=== PATIENT | male | born 1950 | race Two or more races ===

== ENCOUNTER 2020-04-09 16:30 | Emergency (ER) | payer MEDICARE, OTHER ==
[~2020-04-09] VITALS: Ht 167.6 cm; Wt 60.0 kg
[2020-04-09 16:39] VITALS: BP 121/71
[2020-04-09] MEDS ORDERED: HYDROCODONE/ACETAMINOPHEN 5/325MG TABLET PO ONE (17:00)
[2020-04-09] MEDS ORDERED: KETOROLAC 15MG/ML VIAL IV ONE (17:00)
[2020-04-09] MEDS ORDERED: BACITRACIN ZINC OINT UDPKT TOP NR (18:00)
== END 2020-04-09 18:32 | disposition home or self-care (01) ==
LOC: ER 16:30
DX: S82.62XA Displaced fracture of lateral malleolus of left fibula, initial encounter for closed fracture (principal); E11.9 Type 2 diabetes mellitus without complications; V03.90XA Pedestrian on foot injured in collision with car, pick-up truck or van, unspecified whether traffic or nontraffic accident, initial encounter; Y93.9 Activity, unspecified; Y92.008 Other place in unspecified non-institutional (private) residence as the place of occurrence of the external cause
CPT/HCPCS: 29515; 73610; 96374; 99283; J1885